=== PATIENT | female | born 1950 | race Caucasian/White ===

== ENCOUNTER 2022-07-15 06:57 | Day surgery (SDC) | payer MEDICARE, OTHER ==
[~2022-07-15 06:57] MED LIST: Lidocaine 1%/Sod Bicarbonate in NS 8.4% 1 ML Syringe IDERM PRN; Propofol 200 MG/20 ML SDV ONE; Sodium Chloride 0.9% 10 ML Syringe FLUSH PRN; Sodium Chloride 0.9% 10 ML Syringe FLUSH SCH; fentaNYL 100 MCG/2 ML SDV ONE
[2022-07-15] MEDS: Lactated Ringers 1,000 ML IV SCH (07:18)
[2022-07-15] MEDS: Bupivacaine 0.5% 30 ML SDV ONE (09:15)
[2022-07-15] MEDS ORDERED: Propofol 200 MG/20 ML SDV ONE (09:17)
== END 2022-07-15 10:12 | disposition home or self-care (01) ==
LOC: JD.SDS 06:57
PROVIDERS: ATTEND Surgery
DX: D12.2 Benign neoplasm of ascending colon (principal); D12.4 Benign neoplasm of descending colon; D12.3 Benign neoplasm of transverse colon; D12.5 Benign neoplasm of sigmoid colon; D12.8 Benign neoplasm of rectum; K57.31 Diverticulosis of large intestine without perforation or abscess with bleeding; K64.8 Other hemorrhoids; K64.4 Residual hemorrhoidal skin tags; K29.61 Other gastritis with bleeding; K52.89 Other specified noninfective gastroenteritis and colitis; K63.89 Other specified diseases of intestine; F17.210 Nicotine dependence, cigarettes, uncomplicated; E66.9 Obesity, unspecified; Z68.25 Body mass index [BMI] 25.0-25.9, adult; Z90.09 Acquired absence of other part of head and neck; Z79.899 Other long term (current) drug therapy; Z79.82 Long term (current) use of aspirin; Z88.8 Allergy status to other drugs, medicaments and biological substances; Z98.84 Bariatric surgery status
CPT/HCPCS: 43239; 45380; 45385; 45398; J2704; J3010; J3490; J7120

== ENCOUNTER 2023-02-10 06:56 | Day surgery (SDC) | payer MEDICARE, OTHER ==
[~2023-02-10 06:56] MED LIST changes: +Lactated Ringers 1,000 ML IV SCH; -Lidocaine 1%/Sod Bicarbonate in NS 8.4% 1 ML Syringe IDERM PRN; -Propofol 200 MG/20 ML SDV ONE; -fentaNYL 100 MCG/2 ML SDV ONE
[2023-02-10] MEDS ORDERED: Propofol 200 MG/20 ML SDV ONE ×2 (07:11)
[2023-02-10] MEDS ORDERED: Midazolam 1 MG/ML 2 ML SDV ONE (07:11)
[2023-02-10] MEDS ORDERED: Lidocaine 1% 4 ML ONE (07:11)
[2023-02-10] MEDS ORDERED: EPINEPHrine 1 MG/ML SDV ONE (07:30)
[2023-02-10] MEDS ORDERED: Lidocaine 1% 10 ML MDV ONE (07:31)
[2023-02-10] MEDS ORDERED: Ondansetron 4 MG/2 ML SDV IVPUSH PRN (07:39)
[2023-02-10] MEDS ORDERED: Bacitracin Oint 15 GM Tube ONE (08:36)
== END 2023-02-10 10:34 | disposition home or self-care (01) ==
LOC: JD.SDS 06:56
PROVIDERS: ATTEND Surgery
DX: Z12.11 Encounter for screening for malignant neoplasm of colon (principal); D12.4 Benign neoplasm of descending colon; D12.5 Benign neoplasm of sigmoid colon; K63.5 Polyp of colon; L72.0 Epidermal cyst; K64.8 Other hemorrhoids; I10 Essential (primary) hypertension; E66.9 Obesity, unspecified; Z68.26 Body mass index [BMI] 26.0-26.9, adult; F17.210 Nicotine dependence, cigarettes, uncomplicated; Z79.82 Long term (current) use of aspirin; Z79.899 Other long term (current) drug therapy; Z88.8 Allergy status to other drugs, medicaments and biological substances
CPT/HCPCS: 11104; 45380; 93005; A9270; J0171; J2250; J2704; J7120; 00300; 99100; J3490

== ENCOUNTER 2024-03-08 09:27 | Day surgery (SDC) | payer MEDICARE, OTHER ==
[~2024-03-08 09:27] MED LIST changes: +HYDROmorphone 0.5 MG/0.5 ML Syringe IVPUSH PRN; -Lactated Ringers 1,000 ML IV SCH; +Ondansetron 4 MG/2 ML SDV IVPUSH PRN; +fentaNYL 100 MCG/2 ML SDV IVPUSH PRN
[2024-03-08] MEDS: Lactated Ringers 1,000 ML IV SCH (09:45)
[2024-03-08] MEDS ORDERED: Lidocaine 1% 4 ML ONE (09:58)
[2024-03-08] MEDS ORDERED: Propofol 200 MG/20 ML SDV ONE (09:58)
== END 2024-03-08 12:25 | disposition home or self-care (01) ==
LOC: JD.SDS 09:27
PROVIDERS: ATTEND Surgery
DX: Z12.11 Encounter for screening for malignant neoplasm of colon (principal); K63.5 Polyp of colon; K64.8 Other hemorrhoids; I10 Essential (primary) hypertension; E66.9 Obesity, unspecified; F17.210 Nicotine dependence, cigarettes, uncomplicated; Z88.8 Allergy status to other drugs, medicaments and biological substances; Z79.82 Long term (current) use of aspirin; Z79.899 Other long term (current) drug therapy; Z86.0101 Personal history of adenomatous and serrated colon polyps
CPT/HCPCS: 45380; J2704; J7120; 00811; 88305; 99100; J3490